=== PATIENT | male | born 1985 | race Two or more races ===

== ENCOUNTER 2022-05-31 10:42 | Emergency (ER) | payer MEDICAID, OTHER ==
[~2022-05-31] VITALS: Ht 177.8 cm; Wt 72.0 kg
[2022-05-31 11:13] VITALS: BP 136/69
[2022-05-31 12:04] LABS: Basophils # (auto) 0.1 10 ^3/uL (0-0.2); Basophils % (auto) 0.7 % (0.0-2.0); Eosinophils # (auto) 0 10 ^3/uL (0-0.8); Eosinophils % (auto) 0.1 % (0.0-7.0); Hematocrit 42.4 % (41.0-53.0); Hemoglobin 14.1 g/dL (13.5-17.5); Lymphocytes # (auto) 0.6 10 ^3/uL (0.4-5.4); Lymphocytes % (auto) 3.3 % (10.0-50.0); Mean Corpuscular Hemoglobin 31.7 pg (28.0-32.0); Mean Corpuscular Hgb Conc. 33.3 g/dL (32.0-36.0); Mean Corpuscular Volume 95.3 fL (80.0-100.0); Monocytes % (auto) 5.3 % (0.0-12.0); Neutrophils # (auto) 16.7 10 ^3/uL (1.6-8.6); Neutrophils % (auto) 90.6 % (37.0-80.0); Nucleated Red Blood Cells % 0.4 %; Red Blood Cells 4.45 10^6/uL (4.5-5.90); Red Cell Distribution Width 13.1 % (11.8-14.3); White Blood Cell 18.4 10^3/uL (4.4-10.8)
[2022-05-31 12:07] LABS: Acetaminophen < 2.0 ug/mL (10-30); Albumin 4.1 g/dL (3.4-5.0); BUN/Creatinine Ratio 14.8; Calcium 9.2 mg/dL (8.5-10.1); Potassium 3.8 mmol/L (3.5-5.1); Salicylate < 1.7 mg/dL (2.8-20.0)
[2022-05-31 12:10] LABS: Bilirubin, Total 0.4 mg/dL (0.2-1.0); Total Protein 7.6 g/dL (6.4-8.2)
== END 2022-05-31 14:21 | disposition left against medical advice (07) ==
LOC: ER 10:42 → EDBD 10:42 → ER 14:21
DX: M54.2 Cervicalgia (principal); R07.0 Pain in throat; F20.9 Schizophrenia, unspecified; F15.90 Other stimulant use, unspecified, uncomplicated; Z98.890 Other specified postprocedural states; Z53.29 Procedure and treatment not carried out because of patient's decision for other reasons
CPT/HCPCS: 36415; 71045; 80053; 80329; 85025

== ENCOUNTER 2025-05-15 19:08 | Emergency (ER) | payer MEDICAID ==
[~2025-05-15] VITALS: Ht 180.3 cm; Wt 63.9 kg
[2025-05-15 20:19] VITALS: BP 119/80; PULSE 101; RESP 19; TEMP 98.7; O2SAT 96
[2025-05-15] MEDS: HYDROcodone-ACET 5/325MG TAB PO ONE (20:19)
[2025-05-15] MEDS ORDERED: IBUP-1456 PO (20:30)
[2025-05-15] MEDS ORDERED: DOXY100C4 PO (20:30)
--- NOTE | 2025-05-15 20:30 | DVH ---
CLINICAL INDICATION: Reported fracture without boot for several days TECHNIQUE: 4 radiographic views of the left tibia and fibula were obtained. Comparison: None FINDINGS/IMPRESSION: Nondisplaced fracture distal 3rd left fibula. Tibia appears intact.
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
== END 2025-05-15 20:44 | disposition home or self-care (01) ==
LOC: ER 19:08
DX: S82.832A Other fracture of upper and lower end of left fibula, initial encounter for closed fracture (principal); L89.529 Pressure ulcer of left ankle, unspecified stage; F20.9 Schizophrenia, unspecified; F19.90 Other psychoactive substance use, unspecified, uncomplicated; Z79.899 Other long term (current) drug therapy; Z88.6 Allergy status to analgesic agent; X58.XXXA Exposure to other specified factors, initial encounter; Y93.89 Activity, other specified; Y92.89 Other specified places as the place of occurrence of the external cause; Y99.8 Other external cause status
CPT/HCPCS: 73590